=== PATIENT | female | born 2000 | race Caucasian/White ===

== ENCOUNTER 2022-03-11 00:56 | Emergency (ER) | payer MEDICAID ==
[~2022-03-11] VITALS: Ht 167.6 cm; Wt 68.0 kg
[2022-03-11 01:14] VITALS: BP 110/61
[2022-03-11] MEDS ORDERED: TC025C15 TP (01:57)
[2022-03-11] MEDS ORDERED: CETI10TA11 MT (01:57)
== END 2022-03-11 02:53 | disposition home or self-care (01) ==
LOC: ER 00:56
DX: L50.9 Urticaria, unspecified (principal)
CPT/HCPCS: 99281; 99283

== ENCOUNTER 2024-02-20 12:48 | Emergency (ER) | payer MEDICAID ==
[~2024-02-20] VITALS: Ht 167.6 cm; Wt 73.0 kg
[~2024-02-20 12:48] MED LIST: CETI10TA11 MT; DIPH25CA83 MT; P50 MT; TC025C15 TP
[2024-02-20 13:05] VITALS: BP 122/83; PULSE 82; RESP 16; TEMP 98.6; O2SAT 100
== END 2024-02-20 14:09 | disposition home or self-care (01) ==
LOC: ER 12:48
DX: L72.3 Sebaceous cyst (principal)
CPT/HCPCS: 99281; 99282

== ENCOUNTER 2025-02-17 08:24 | Emergency (ER) | payer MEDICAID ==
[~2025-02-17] VITALS: Ht 167.6 cm; Wt 63.0 kg
[2025-02-17 08:30] VITALS: TEMP 36.6; O2SAT 98
[2025-02-17] MEDS: KETOROLAC 15MG/ML VIAL IM ONE (09:06)
[2025-02-17 09:15] LABS: BASOPHILS % 0.5 % (0.0-2.0); EOSINOPHILS % 1.1 % (0.0-5.0); HEMATOCRIT. 41.5 % (36.0-48.0); HEMOGLOBIN. 14.3 g/dL (12.0-16.0); LYMPHOCYTES % 26.7 % (20.0-50.0); MEAN PLATELET VOLUME 8.2 fl (7.4-10.4); MONOCYTES % 7.6 % (2.0-8.0); NEUTROPHILS % 64.1 % (40.0-76.0); PLATELET 287 x1000/uL (130-400); RED BLOOD CELL COUNT 4.46 mill/uL (4.2-5.4); RED CELL DISTRIBUTION WIDTH 12.6 % (11.6-14.6)
[2025-02-17 09:31] LABS: CREATININE 0.7 mg/dL (0.6-1.0); TROPONIN I HIGH SENSITIVITY < 4 ng/L (3.0-34); UREA NITROGEN BLOOD 7 mg/dL (9-23)
[2025-02-17 09:33] LABS: ASPARTATE AMINOTRANSFERASE 16 IU/L (<34); BILIRUBIN DIRECT 0.2 mg/dL (<=3.0)
[2025-02-17 09:34] LABS: BILIRUBIN TOTAL 0.9 mg/dL (0.1-1.0); PROTEIN TOTAL 7.0 g/dL (6.0-8.3)
[2025-02-17] MEDS ORDERED: CELE100C MT (09:54)
[2025-02-17 10:19] VITALS: BP 101/69; PULSE 66; RESP 16; O2SAT 100
== END 2025-02-17 10:20 | disposition home or self-care (01) ==
LOC: ER 08:24
DX: R07.89 Other chest pain (principal); Z79.1 Long term (current) use of non-steroidal anti-inflammatories (NSAID); Z79.899 Other long term (current) drug therapy
CPT/HCPCS: 99285; 71045; 80076; 80048; 81025; 83690; 85025; 85379; 84484; 36415; 93005; 96372; J1885